=== PATIENT | male | born 1945 | race Caucasian/White ===

== ENCOUNTER 2017-05-28 16:57 | Emergency (ER) | payer OTHER, BC ==
[~2017-05-28] VITALS: Ht 167.6 cm; Wt 85.0 kg
[2017-05-28 18:22] LABS: HEMATOCRIT 40.3 % (38.0-50.0); HEMOGLOBIN 13.9 G/DL (12.5-16.6); MCH 32.9 PG (29.0-34.0); MCHC 34.5 G/DL (30.0-36.0); MCV 95.3 FL (86-99); PLATELET COUNT 216 K/uL (156-360); RBC DIS.WIDTH-CV 14.7 % (11.8-14.6); RBC DIS.WIDTH-SD 51.1 % (39-53); RED BLOOD COUNT 4.23 M/uL (4.00-5.50); WHITE BLOOD COUNT 7.1 K/uL (4.1-10.2)
[2017-05-28 18:32] LABS: CHLORIDE 100 mEq/L (99-109); POTASSIUM 3.5 mEq/L (3.7-5.4); SODIUM 138 mEq/L (136-147)
[2017-05-28 18:34] LABS: GLUCOSE 172 mg/dL (70-99)
[2017-05-28 18:38] LABS: GFR ESTIMATE (CALCULATED) > 59 mL/min/ (58.99-99999)
[2017-05-28 18:39] LABS: UREA NITROGEN (BUN) 28 mg/dL (9-23)
[2017-05-28] MEDS ORDERED: LASIX40 MG PO (20:34)
[2017-05-28] MEDS ORDERED: ELIQUIS5 MG PO (20:34)
[2017-05-28 21:05] VITALS: BP 110/82
== END 2017-05-28 20:44 | disposition home or self-care (01) ==
LOC: EME 16:57
PROVIDERS: Physician Assistant
DX: I82.402 Acute embolism and thrombosis of unspecified deep veins of left lower extremity (principal); R60.0 Localized edema; R91.8 Other nonspecific abnormal finding of lung field; R00.0 Tachycardia, unspecified; I44.0 Atrioventricular block, first degree; I49.3 Ventricular premature depolarization; I44.4 Left anterior fascicular block; R94.31 Abnormal electrocardiogram [ECG] [EKG]; K21.9 Gastro-esophageal reflux disease without esophagitis; Z87.01 Personal history of pneumonia (recurrent)
CPT/HCPCS: 71046; 80048; 85027; 93005; 93970; 99281; 99284

== ENCOUNTER 2017-06-17 17:23 | Emergency (ER) | payer OTHER, BC ==
[~2017-06-17] VITALS: Ht 170.2 cm; Wt 88.3 kg
[~2017-06-17 17:23] MED LIST: CLARITIN,ALAVAR10 MG PO; DULCOLAX5 MG PO; ELIQUIS5 MG PO; FLONASE16 G1 BOTH NARES; HYDROCHLOROTHIA25 MG PO; LASIX40 MG PO; MONODOX100 MG PO; MORGIDOX50 MG PO; OCEAN NASAL 0.645 ML BOTH NARES; PEPCID COMPLET1 EACH PO; PRILOSEC20 MG PO; PROMETHAZINE-D120 M1 PO; SINGULAIR10 MG PO; ZYRTEC5 MG PO; [UNRECOGNIZED DRUG - OTHER] TP
[2017-06-17 18:03] LABS: HEMATOCRIT 41.5 % (38.0-50.0); HEMOGLOBIN 14.6 G/DL (12.5-16.6); MCH 33.6 PG (29.0-34.0); MCHC 35.2 G/DL (30.0-36.0); MCV 95.4 FL (86-99); NRBC (%) 0.6 /100 WBC (0-0); PLATELET COUNT 190 K/uL (156-360); RBC DIS.WIDTH-CV 15.9 % (11.8-14.6); RBC DIS.WIDTH-SD 54.4 % (39-53); RED BLOOD COUNT 4.35 M/uL (4.00-5.50); WHITE BLOOD COUNT 5.4 K/uL (4.1-10.2)
[2017-06-17 18:12] LABS: CHLORIDE 99 mEq/L (99-109); POTASSIUM 3.4 mEq/L (3.7-5.4); SODIUM 137 mEq/L (136-147)
[2017-06-17 18:13] LABS: GLUCOSE 181 mg/dL (70-99)
[2017-06-17 18:17] LABS: CREATININE 1.1 mg/dL (0.6-1.3); GFR ESTIMATE (CALCULATED) > 59 mL/min/ (58.99-99999)
[2017-06-17 18:18] LABS: UREA NITROGEN (BUN) 36 mg/dL (9-23)
[2017-06-17 18:25] LABS: TROP-I INTERPRETATION NEGATIVE; TROPONIN-I 0.05 ng/mL (0.0-0.30)
[2017-06-17 21:33] VITALS: BP 107/69
== END 2017-06-17 21:40 | disposition home or self-care (01) ==
LOC: EME 17:23
DX: I50.9 Heart failure, unspecified (principal); K21.9 Gastro-esophageal reflux disease without esophagitis; Z86.718 Personal history of other venous thrombosis and embolism
CPT/HCPCS: 71046; 80048; 83880; 84484; 85027; 93005; 99281; 99285

== ENCOUNTER 2017-06-20 13:49 | Inpatient (IN) | payer OTHER, BC ==
[~2017-06-20] VITALS: Ht 167.6 cm; Wt 80.3 kg
[2017-06-20 15:03] LABS: BASOPHIL (%) 0.6 % (0-1); EOSINOPHIL (%) 0.4 % (0-5); HEMATOCRIT 42.8 % (38.0-50.0); IMMATURE GRANULOCYTE (%) 0.4 % (0.0-0.7); LYMPHOCYTE (%) 23.2 % (15-42); LYMPHOCYTE COUNT 1.2 K/uL (1.0-2.8); MCH 33.5 PG (29.0-34.0); MCV 95.5 FL (86-99); MONOCYTE COUNT 0.4 K/uL (0-0.8); NEUTROPHIL (%) 68.4 % (45-76); NEUTROPHIL COUNT 3.6 K/uL (1.8-6.4); NRBC (%) 0.8 /100 WBC (0-0); PLATELET COUNT 172 K/uL (156-360); RBC DIS.WIDTH-CV 16.3 % (11.8-14.6); RBC DIS.WIDTH-SD 55.5 % (39-53); RED BLOOD COUNT 4.48 M/uL (4.00-5.50); WHITE BLOOD COUNT 5.3 K/uL (4.1-10.2)
[2017-06-20 15:09] LABS: INTER. NORMALIZED RATIO 1.8
[2017-06-20 15:11] LABS: PTT 26.9 SEC (25-37)
[2017-06-20 15:12] LABS: CHLORIDE 99 mEq/L (99-109); SODIUM 135 mEq/L (136-147)
[2017-06-20 15:13] LABS: MAGNESIUM 1.5 mg/dL (1.3-2.7)
[2017-06-20 15:14] LABS: GLUCOSE 175 mg/dL (70-99)
[2017-06-20 15:18] LABS: CREATININE 1.2 mg/dL (0.6-1.3); GFR ESTIMATE (CALCULATED) > 59 mL/min/ (58.99-99999)
[2017-06-20 15:19] LABS: UREA NITROGEN (BUN) 38 mg/dL (9-23)
[2017-06-20 15:24] LABS: TROP-I INTERPRETATION NEGATIVE; TROPONIN-I 0.06 ng/mL (0.0-0.30)
[2017-06-20] MEDS ORDERED: FUROSEMIDE40 MG PO (16:14)
[2017-06-20] MEDS ORDERED: B-100 COMPLEX100 MG PO (16:15)
[2017-06-20] MEDS ORDERED: K-DUR20 MEQ PO (16:15)
[2017-06-20 19:57] VITALS: BP 88/78
[2017-06-20 23:58] VITALS: BP 92/73
[2017-06-21 05:40] VITALS: BP 101/72
[2017-06-21 08:10] VITALS: BP 103/79
[2017-06-21 09:59] LABS: CHLORIDE 99 MEQ/L (99-109); GFR ESTIMATE (CALCULATED) > 59 mL/min/ (58.99-99999); GLUCOSE 139 mg/dL (70-99); SODIUM 134 MEQ/L (136-147); UREA NITROGEN (BUN) 31 mg/dL (9-23)
[2017-06-21 10:13] LABS: BASOPHIL (%) 0.9 % (0-1); BASOPHIL COUNT 0.1 K/uL (0-0.1); EOSINOPHIL (%) 0.7 % (0-5); HEMATOCRIT 47.2 % (38.0-50.0); HEMOGLOBIN 15.2 G/DL (12.5-16.6); IMMATURE GRANULOCYTE (%) 0.6 % (0.0-0.7); LYMPHOCYTE (%) 22.6 % (15-42); LYMPHOCYTE COUNT 1.2 K/uL (1.0-2.8); MCH 32.5 PG (29.0-34.0); MCHC 32.2 G/DL (30.0-36.0); MONOCYTE (%) 6.1 % (3-12); MONOCYTE COUNT 0.3 K/uL (0-0.8); NEUTROPHIL (%) 69.1 % (45-76); NEUTROPHIL COUNT 3.7 K/uL (1.8-6.4); NRBC (%) 0.6 /100 WBC (0-0); PLATELET COUNT 156 K/uL (156-360); RBC DIS.WIDTH-SD 61.1 % (39-53); RED BLOOD COUNT 4.68 M/uL (4.00-5.50); WHITE BLOOD COUNT 5.4 K/uL (4.1-10.2)
[2017-06-21 10:15] LABS: MCV 100.9 FL (86-99)
[2017-06-21 15:35] VITALS: BP 104/68
[2017-06-21 19:50] VITALS: BP 93/75
[2017-06-22 03:20] VITALS: BP 98/68
[2017-06-22 05:53] LABS: CHLORIDE 99 MEQ/L (99-109); CREATININE 0.9 MG/DL (0.6-1.3); GFR ESTIMATE (CALCULATED) > 59 mL/min/ (58.99-99999); GLUCOSE 138 mg/dL (70-99); POTASSIUM 3.5 MEQ/L (3.7-5.4); SODIUM 136 MEQ/L (136-147); UREA NITROGEN (BUN) 29 mg/dL (9-23)
[2017-06-22 07:37] VITALS: BP 98/63
[2017-06-22 09:45] LABS: MAGNESIUM 1.6 mg/dl (1.3-2.7)
[2017-06-22 11:45] VITALS: BP 89/60
[2017-06-22] MEDS ORDERED: ELIQUIS5 MG PO (14:37)
[2017-06-22 16:06] VITALS: BP 102/65
[2017-06-22 20:03] VITALS: BP 89/69
[2017-06-22 23:33] VITALS: BP 96/76
[2017-06-23] VITALS (8 sets, daily range): BP systolic 82–122; BP diastolic 58–78
[2017-06-23 07:03] LABS: CHLORIDE 100 MEQ/L (99-109); CREATININE 0.9 MG/DL (0.6-1.3); GFR ESTIMATE (CALCULATED) > 59 mL/min/ (58.99-99999); GLUCOSE 194 mg/dL (70-99); MAGNESIUM 1.6 mg/dl (1.3-2.7); SODIUM 135 MEQ/L (136-147); UREA NITROGEN (BUN) 30 mg/dL (9-23)
[2017-06-24 04:30] VITALS: BP 97/64
[2017-06-24 05:36] LABS: CHLORIDE 101 MEQ/L (99-109); CREATININE 0.9 MG/DL (0.6-1.3); GFR ESTIMATE (CALCULATED) > 59 mL/min/ (58.99-99999); GLUCOSE 186 mg/dL (70-99); MAGNESIUM 1.8 mg/dl (1.3-2.7); POTASSIUM 4.5 MEQ/L (3.7-5.4); SODIUM 135 MEQ/L (136-147); UREA NITROGEN (BUN) 28 mg/dL (9-23)
[2017-06-24 07:50] VITALS: BP 98/62
[2017-06-24 11:38] VITALS: BP 78/40
[2017-06-24 16:26] VITALS: BP 82/46
[2017-06-24 20:45] VITALS: BP 88/52
[2017-06-25 00:16] VITALS: BP 103/78
[2017-06-25 04:18] VITALS: BP 94/69
[2017-06-25 08:51] LABS: CHLORIDE 100 MEQ/L (99-109); GFR ESTIMATE (CALCULATED) > 59 mL/min/ (58.99-99999); GLUCOSE 184 mg/dL (70-99); POTASSIUM 5.8 MEQ/L (3.7-5.4); SODIUM 131 MEQ/L (136-147); UREA NITROGEN (BUN) 31 mg/dL (9-23)
[2017-06-25 09:00] VITALS: BP 102/72
[2017-06-25 12:05] VITALS: BP 89/71
[2017-06-25 16:50] VITALS: BP 96/68
[2017-06-25 19:30] VITALS: BP 106/73
[2017-06-26 03:52] VITALS: BP 91/57
[2017-06-26 05:25] LABS: BASOPHIL (%) 0.5 % (0-1); EOSINOPHIL (%) 0.9 % (0-5); EOSINOPHIL COUNT 0.1 K/uL (0-0.3); HEMATOCRIT 39.6 % (38.0-50.0); HEMOGLOBIN 13.3 G/DL (12.5-16.6); IMMATURE GRANULOCYTE (%) 0.4 % (0.0-0.7); LYMPHOCYTE (%) 17.3 % (15-42); MCHC 33.6 G/DL (30.0-36.0); MONOCYTE (%) 5.1 % (3-12); MONOCYTE COUNT 0.3 K/uL (0-0.8); NEUTROPHIL (%) 75.8 % (45-76); NEUTROPHIL COUNT 4.2 K/uL (1.8-6.4); PLATELET COUNT 174 K/uL (156-360); RBC DIS.WIDTH-CV 15.9 % (11.8-14.6); RBC DIS.WIDTH-SD 54.9 % (39-53); RED BLOOD COUNT 4.16 M/uL (4.00-5.50); WHITE BLOOD COUNT 5.5 K/uL (4.1-10.2)
[2017-06-26 05:29] LABS: MCV 95.2 FL (86-99)
[2017-06-26 05:50] LABS: CHLORIDE 99 MEQ/L (99-109); CREATININE 0.9 MG/DL (0.6-1.3); GFR ESTIMATE (CALCULATED) > 59 mL/min/ (58.99-99999); GLUCOSE 165 mg/dL (70-99); POTASSIUM 4.3 MEQ/L (3.7-5.4); SODIUM 133 MEQ/L (136-147); UREA NITROGEN (BUN) 28 mg/dL (9-23)
[2017-06-26 08:25] VITALS: BP 100/60
[2017-06-26 11:12] VITALS: BP 105/74
[2017-06-26 16:00] VITALS: BP 93/64
[2017-06-26 19:00] VITALS: BP 91/67
[2017-06-26 23:40] VITALS: BP 93/65
[2017-06-27] VITALS (7 sets, daily range): BP systolic 91–100; BP diastolic 64–75
[2017-06-27 05:29] LABS: BASOPHIL (%) 0.7 % (0-1); EOSINOPHIL (%) 1.6 % (0-5); EOSINOPHIL COUNT 0.1 K/uL (0-0.3); HEMOGLOBIN 13.9 G/DL (12.5-16.6); IMMATURE GRANULOCYTE (%) 0.4 % (0.0-0.7); LYMPHOCYTE (%) 16.9 % (15-42); LYMPHOCYTE COUNT 0.9 K/uL (1.0-2.8); MCH 33.4 PG (29.0-34.0); MCHC 34.8 G/DL (30.0-36.0); MCV 96.2 FL (86-99); MONOCYTE (%) 5.5 % (3-12); MONOCYTE COUNT 0.3 K/uL (0-0.8); NEUTROPHIL (%) 74.9 % (45-76); NEUTROPHIL COUNT 4.1 K/uL (1.8-6.4); PLATELET COUNT 175 K/uL (156-360); RBC DIS.WIDTH-CV 16.2 % (11.8-14.6); RBC DIS.WIDTH-SD 56.4 % (39-53); RED BLOOD COUNT 4.16 M/uL (4.00-5.50); WHITE BLOOD COUNT 5.5 K/uL (4.1-10.2)
[2017-06-27 05:51] LABS: CHLORIDE 98 MEQ/L (99-109); GFR ESTIMATE (CALCULATED) > 59 mL/min/ (58.99-99999); GLUCOSE 160 mg/dL (70-99); POTASSIUM 4.7 MEQ/L (3.7-5.4); SODIUM 132 MEQ/L (136-147); UREA NITROGEN (BUN) 31 mg/dL (9-23)
[2017-06-28] VITALS (8 sets, daily range): BP systolic 92–102; BP diastolic 59–74
[2017-06-28 06:01] LABS: BASOPHIL (%) 0.8 % (0-1); EOSINOPHIL (%) 0.8 % (0-5); HEMATOCRIT 42.5 % (38.0-50.0); HEMOGLOBIN 14.3 G/DL (12.5-16.6); IMMATURE GRANULOCYTE (%) 0.2 % (0.0-0.7); LYMPHOCYTE COUNT 1.1 K/uL (1.0-2.8); MCH 32.6 PG (29.0-34.0); MCHC 33.6 G/DL (30.0-36.0); MCV 96.8 FL (86-99); MONOCYTE (%) 5.5 % (3-12); MONOCYTE COUNT 0.3 K/uL (0-0.8); NEUTROPHIL (%) 70.7 % (45-76); NEUTROPHIL COUNT 3.5 K/uL (1.8-6.4); PLATELET COUNT 184 K/uL (156-360); RBC DIS.WIDTH-CV 16.4 % (11.8-14.6); RED BLOOD COUNT 4.39 M/uL (4.00-5.50)
[2017-06-28 06:26] LABS: CHLORIDE 99 MEQ/L (99-109); CREATININE 0.9 MG/DL (0.6-1.3); GFR ESTIMATE (CALCULATED) > 59 mL/min/ (58.99-99999); GLUCOSE 150 mg/dL (70-99); POTASSIUM 5.1 MEQ/L (3.7-5.4); SODIUM 135 MEQ/L (136-147); UREA NITROGEN (BUN) 28 mg/dL (9-23)
[2017-06-29 04:12] VITALS: BP 101/57
[2017-06-29 07:00] LABS: CHLORIDE 100 MEQ/L (99-109); CREATININE 0.9 MG/DL (0.6-1.3); GFR ESTIMATE (CALCULATED) > 59 mL/min/ (58.99-99999); GLUCOSE 151 mg/dL (70-99); POTASSIUM 4.5 MEQ/L (3.7-5.4); SODIUM 135 MEQ/L (136-147); UREA NITROGEN (BUN) 29 mg/dL (9-23)
[2017-06-29 10:23] VITALS: BP 92/70
[2017-06-29 12:50] VITALS: BP 102/73
[2017-06-29 16:54] VITALS: BP 87/64
[2017-06-29 19:45] VITALS: BP 98/68
[2017-06-29 23:28] VITALS: BP 90/51
[2017-06-30 07:06] LABS: CHLORIDE 99 MEQ/L (99-109); GFR ESTIMATE (CALCULATED) > 59 mL/min/ (58.99-99999); GLUCOSE 124 mg/dL (70-99); POTASSIUM 4.1 MEQ/L (3.7-5.4); SODIUM 138 MEQ/L (136-147); UREA NITROGEN (BUN) 29 mg/dL (9-23)
[2017-06-30 07:57] VITALS: BP 99/71
[2017-06-30 11:38] VITALS: BP 97/73
[2017-06-30 16:16] VITALS: BP 86/61
[2017-06-30 20:19] VITALS: BP 101/77
[2017-06-30 23:52] VITALS: BP 92/70
[2017-07-01 00:18] VITALS: BP 79/53
[2017-07-01 03:38] VITALS: BP 82/56
[2017-07-01 06:09] LABS: CHLORIDE 99 MEQ/L (99-109); CREATININE 0.9 MG/DL (0.6-1.3); GFR ESTIMATE (CALCULATED) > 59 mL/min/ (58.99-99999); GLUCOSE 128 mg/dL (70-99); POTASSIUM 3.4 MEQ/L (3.7-5.4); SODIUM 137 MEQ/L (136-147); UREA NITROGEN (BUN) 26 mg/dL (9-23)
[2017-07-01 08:53] VITALS: BP 92/67
[2017-07-01 16:28] VITALS: BP 96/67
[2017-07-01 20:32] VITALS: BP 101/70
[2017-07-02 00:18] VITALS: BP 90/62
[2017-07-02 04:00] VITALS: BP 90/65
[2017-07-02 06:13] LABS: CHLORIDE 98 MEQ/L (99-109); CREATININE 0.8 MG/DL (0.6-1.3); GFR ESTIMATE (CALCULATED) > 59 mL/min/ (58.99-99999); GLUCOSE 125 mg/dL (70-99); POTASSIUM 3.6 MEQ/L (3.7-5.4); SODIUM 138 MEQ/L (136-147); UREA NITROGEN (BUN) 24 mg/dL (9-23)
[2017-07-02 07:28] VITALS: BP 91/63
[2017-07-02 11:07] VITALS: BP 82/64
[2017-07-02 15:29] VITALS: BP 96/63
[2017-07-02 20:13] VITALS: BP 95/70
[2017-07-03] VITALS (7 sets, daily range): BP systolic 82–126; BP diastolic 49–79
[2017-07-03 09:30] LABS: CHLORIDE 96 MEQ/L (99-109); CREATININE 0.9 MG/DL (0.6-1.3); GFR ESTIMATE (CALCULATED) > 59 mL/min/ (58.99-99999); GLUCOSE 173 mg/dL (70-99); POTASSIUM 3.8 MEQ/L (3.7-5.4); SODIUM 133 MEQ/L (136-147); UREA NITROGEN (BUN) 23 mg/dL (9-23)
[2017-07-04] VITALS (7 sets, daily range): BP systolic 89–111; BP diastolic 55–72
[2017-07-04 07:13] LABS: CHLORIDE 96 MEQ/L (99-109); GFR ESTIMATE (CALCULATED) > 59 mL/min/ (58.99-99999); GLUCOSE 142 mg/dL (70-99); POTASSIUM 4.3 MEQ/L (3.7-5.4); SODIUM 136 MEQ/L (136-147); UREA NITROGEN (BUN) 24 mg/dL (9-23)
[2017-07-05 03:40] VITALS: BP 95/69
[2017-07-05 06:02] LABS: HEMATOCRIT 40.9 % (38.0-50.0); HEMOGLOBIN 13.6 G/DL (12.5-16.6); MCHC 33.3 G/DL (30.0-36.0); MCV 96.2 FL (86-99); PLATELET COUNT 180 K/uL (156-360); RBC DIS.WIDTH-CV 16.2 % (11.8-14.6); RBC DIS.WIDTH-SD 57.6 % (39-53); RED BLOOD COUNT 4.25 M/uL (4.00-5.50); WHITE BLOOD COUNT 4.3 K/uL (4.1-10.2)
[2017-07-05 06:25] LABS: CHLORIDE 99 MEQ/L (99-109); CREATININE 0.8 MG/DL (0.6-1.3); GFR ESTIMATE (CALCULATED) > 59 mL/min/ (58.99-99999); GLUCOSE 132 mg/dL (70-99); POTASSIUM 3.9 MEQ/L (3.7-5.4); SODIUM 137 MEQ/L (136-147); UREA NITROGEN (BUN) 23 mg/dL (9-23)
[2017-07-05 08:16] VITALS: BP 90/70
[2017-07-05 12:08] VITALS: BP 92/68
[2017-07-05 15:57] VITALS: BP 87/67
[2017-07-05 20:00] VITALS: BP 92/65
[2017-07-06] VITALS (8 sets, daily range): BP systolic 85–115; BP diastolic 58–73
[2017-07-06 11:23] LABS: CHLORIDE 98 MEQ/L (99-109); CREATININE 0.8 MG/DL (0.6-1.3); GFR ESTIMATE (CALCULATED) > 59 mL/min/ (58.99-99999); GLUCOSE 180 mg/dL (70-99); MAGNESIUM 1.9 mg/dl (1.3-2.7); POTASSIUM 3.6 MEQ/L (3.7-5.4); SODIUM 136 MEQ/L (136-147); UREA NITROGEN (BUN) 22 mg/dL (9-23)
[2017-07-07 03:58] VITALS: BP 97/55
[2017-07-07 05:51] LABS: HEMATOCRIT 39.8 % (38.0-50.0); HEMOGLOBIN 13.3 G/DL (12.5-16.6); MCH 32.5 PG (29.0-34.0); MCHC 33.4 G/DL (30.0-36.0); MCV 97.3 FL (86-99); PLATELET COUNT 177 K/uL (156-360); RBC DIS.WIDTH-CV 16.1 % (11.8-14.6); RBC DIS.WIDTH-SD 57.6 % (39-53); RED BLOOD COUNT 4.09 M/uL (4.00-5.50); WHITE BLOOD COUNT 4.3 K/uL (4.1-10.2)
[2017-07-07 06:20] LABS: CHLORIDE 92 MEQ/L (99-109); CREATININE 0.8 MG/DL (0.6-1.3); GFR ESTIMATE (CALCULATED) > 59 mL/min/ (58.99-99999); SODIUM 136 MEQ/L (136-147); UREA NITROGEN (BUN) 23 mg/dL (9-23)
[2017-07-07 06:21] LABS: GLUCOSE 119 mg/dL (70-99); POTASSIUM 2.7 MEQ/L (3.7-5.4)
[2017-07-07 07:49] VITALS: BP 96/72
[2017-07-07 11:28] VITALS: BP 88/68
[2017-07-07 17:00] VITALS: BP 148/92
[2017-07-07 19:49] VITALS: BP 97/65
[2017-07-08] VITALS (7 sets, daily range): BP systolic 81–142; BP diastolic 53–67
[2017-07-08 08:50] LABS: CHLORIDE 89 MEQ/L (99-109); CREATININE 0.8 MG/DL (0.6-1.3); GFR ESTIMATE (CALCULATED) > 59 mL/min/ (58.99-99999); GLUCOSE 128 mg/dL (70-99); MAGNESIUM 1.8 mg/dl (1.3-2.7); SODIUM 138 MEQ/L (136-147); UREA NITROGEN (BUN) 22 mg/dL (9-23)
[2017-07-08 08:51] LABS: POTASSIUM 3.3 MEQ/L (3.7-5.4)
[2017-07-09] VITALS (7 sets, daily range): BP systolic 83–104; BP diastolic 54–74
[2017-07-09 06:17] LABS: CHLORIDE 87 MEQ/L (99-109); CREATININE 0.7 MG/DL (0.6-1.3); GFR ESTIMATE (CALCULATED) > 59 mL/min/ (58.99-99999); GLUCOSE 139 mg/dL (70-99); MAGNESIUM 1.8 mg/dl (1.3-2.7); POTASSIUM 3.3 MEQ/L (3.7-5.4); SODIUM 136 MEQ/L (136-147); UREA NITROGEN (BUN) 23 mg/dL (9-23)
[2017-07-10] VITALS (7 sets, daily range): BP systolic 84–118; BP diastolic 63–77
[2017-07-10 06:08] LABS: HEMATOCRIT 38.4 % (38.0-50.0); MCH 32.5 PG (29.0-34.0); MCHC 33.9 G/DL (30.0-36.0); PLATELET COUNT 165 K/uL (156-360); RBC DIS.WIDTH-SD 56.7 % (39-53); WHITE BLOOD COUNT 4.4 K/uL (4.1-10.2)
[2017-07-10 06:41] LABS: CHLORIDE 89 MEQ/L (99-109); CREATININE 0.7 MG/DL (0.6-1.3); GFR ESTIMATE (CALCULATED) > 59 mL/min/ (58.99-99999); GLUCOSE 141 mg/dL (70-99); MAGNESIUM 1.8 mg/dl (1.3-2.7); POTASSIUM 3.3 MEQ/L (3.7-5.4); SODIUM 136 MEQ/L (136-147); UREA NITROGEN (BUN) 23 mg/dL (9-23)
[2017-07-11 03:28] VITALS: BP 93/63
[2017-07-11 06:51] LABS: CHLORIDE 89 MEQ/L (99-109); CREATININE 0.9 MG/DL (0.6-1.3); GFR ESTIMATE (CALCULATED) > 59 mL/min/ (58.99-99999); GLUCOSE 158 mg/dL (70-99); SODIUM 135 MEQ/L (136-147); UREA NITROGEN (BUN) 25 mg/dL (9-23)
[2017-07-11 06:56] LABS: POTASSIUM 4.2 MEQ/L (3.7-5.4)
[2017-07-11 07:44] VITALS: BP 115/75
[2017-07-11 11:24] VITALS: BP 104/79
[2017-07-11 15:19] VITALS: BP 141/78
[2017-07-11 20:43] VITALS: BP 111/72
[2017-07-11 23:20] VITALS: BP 95/66
[2017-07-12 03:45] VITALS: BP 93/66
[2017-07-12 06:19] LABS: CHLORIDE 88 MEQ/L (99-109); GFR ESTIMATE (CALCULATED) > 59 mL/min/ (58.99-99999); GLUCOSE 171 mg/dL (70-99); MAGNESIUM 2.2 mg/dl (1.3-2.7); POTASSIUM 4.8 MEQ/L (3.7-5.4); SODIUM 135 MEQ/L (136-147); UREA NITROGEN (BUN) 31 mg/dL (9-23)
[2017-07-12 07:23] VITALS: BP 115/79
[2017-07-12] MEDS ORDERED: METOPROLOL SUCC25 MG PO (10:35)
[2017-07-12] MEDS ORDERED: SPIRONOLACTONE25 MG PO (10:36)
[2017-07-12] MEDS ORDERED: FUROSEMIDE40 MG PO (10:36)
== END 2017-07-12 12:03 | disposition home or self-care (01) | DRG 292 ==
LOC: EME 13:49 → EDOF 15:57 → 5SOUTH 15:57 → 4EAST 15:57 → 2EAST 15:57 → ENRESERV 15:58 → 5SOUTH 18:56 → ENRESERV 06-23 16:04 → 4EAST 06-23 17:46 → CANRESERV 06-28 09:09 → ENRESERV 06-28 09:09 → 2EAST 06-28 12:13
PROVIDERS: Emergency Medicine; Hospitalist; Internal Medicine; Internal Medicine Cardiovascular Disease; Nurse Practitioner Family; Physician Assistant Medical; Student in an Organized Health Care Education/Training Program
DX: I11.0 Hypertensive heart disease with heart failure (principal); I50.23 Acute on chronic systolic (congestive) heart failure; I50.82 Biventricular heart failure; R91.1 Solitary pulmonary nodule; I24.0 Acute coronary thrombosis not resulting in myocardial infarction; K21.9 Gastro-esophageal reflux disease without esophagitis; K76.1 Chronic passive congestion of liver; I27.20 Pulmonary hypertension, unspecified; I82.509 Chronic embolism and thrombosis of unspecified deep veins of unspecified lower extremity; I47.2 Ventricular tachycardia; I95.9 Hypotension, unspecified; F41.9 Anxiety disorder, unspecified; K31.9 Disease of stomach and duodenum, unspecified; E87.6 Hypokalemia; I42.9 Cardiomyopathy, unspecified; E87.1 Hypo-osmolality and hyponatremia; I49.3 Ventricular premature depolarization; Z87.01 Personal history of pneumonia (recurrent); T50.2X5A Adverse effect of carbonic-anhydrase inhibitors, benzothiadiazides and other diuretics, initial encounter; R18.8 Other ascites; I34.0 Nonrheumatic mitral (valve) insufficiency; Z79.899 Other long term (current) drug therapy; K59.00 Constipation, unspecified; Z86.718 Personal history of other venous thrombosis and embolism; Z79.01 Long term (current) use of anticoagulants; Z68.30 Body mass index [BMI] 30.0-30.9, adult; Z86.72 Personal history of thrombophlebitis
CPT/HCPCS: 71045; 71046; 71275; 80048; 83735; 83880; 84132 91; 84484; 85025; 85027; 85379; 85610; 85730; 93005; 93306; 93970; 94640; 94640 76; 94799; 97530 GO; 99281; 99285; J1940; J3480

== ENCOUNTER 2017-07-20 16:37 | Emergency (ER) | payer OTHER, BC ==
[~2017-07-20] VITALS: Ht 170.2 cm; Wt 79.3 kg
[~2017-07-20 16:37] MED LIST changes: +B-100 COMPLEX100 MG PO; +FUROSEMIDE40 MG PO; +K-DUR20 MEQ PO; +METOPROLOL SUCC25 MG PO; +SPIRONOLACTONE25 MG PO
[2017-07-20 18:09] LABS: BASOPHIL (%) 0.4 % (0-1); EOSINOPHIL (%) 1.2 % (0-5); EOSINOPHIL COUNT 0.1 K/uL (0-0.3); HEMATOCRIT 43.3 % (38.0-50.0); HEMOGLOBIN 14.6 G/DL (12.5-16.6); IMMATURE GRANULOCYTE (%) 0.6 % (0.0-0.7); LYMPHOCYTE COUNT 0.9 K/uL (1.0-2.8); MCHC 33.7 G/DL (30.0-36.0); MCV 97.7 FL (86-99); MONOCYTE (%) 6.5 % (3-12); MONOCYTE COUNT 0.3 K/uL (0-0.8); NEUTROPHIL (%) 73.3 % (45-76); NEUTROPHIL COUNT 3.7 K/uL (1.8-6.4); NRBC (%) 0.6 /100 WBC (0-0); RBC DIS.WIDTH-CV 16.8 % (11.8-14.6); RBC DIS.WIDTH-SD 59.6 % (39-53); RED BLOOD COUNT 4.43 M/uL (4.00-5.50); WHITE BLOOD COUNT 5.1 K/uL (4.1-10.2)
[2017-07-20 18:10] LABS: APPEARANCE CLEAR ((CLEAR)); BILIRUBIN NEGATIVE; BLOOD NEGATIVE; COLOR YELLOW ((YELLOW)); GLUCOSE (STRIP) NEGATIVE; KETONES NEGATIVE; LEUKOCYTES NEGATIVE; NITRITE NEGATIVE; PROTEIN (STRIP) 30; SPECIFIC GRAVITY 1.012 (1.000-1.030); UCUL ADDED? NO; UROBILINOGEN 0.2 MG/DL (0.2-1.0)
[2017-07-20 18:10] LABS: PLATELET COUNT 215 K/uL (156-360)
[2017-07-20 18:19] LABS: ALBUMIN 3.6 g/dL (3.2-4.8); CHLORIDE 97 mEq/L (99-109); SODIUM 137 mEq/L (136-147)
[2017-07-20 18:20] LABS: MAGNESIUM 2.1 mg/dL (1.3-2.7); PTT 28.9 SEC (25-37)
[2017-07-20 18:21] LABS: GLUCOSE 134 mg/dL (70-99); TOTAL PROTEIN 6.8 g/dL (6.4-8.3)
[2017-07-20 18:23] LABS: TOTAL BILIRUBIN 1.9 mg/dL (0.0-1.0)
[2017-07-20 18:25] LABS: ALKALINE PHOSPHATASE 137 IU/L (3-129); CREATININE 1.1 mg/dL (0.6-1.3); GFR ESTIMATE (CALCULATED) > 59 mL/min/ (58.99-99999)
[2017-07-20 18:26] LABS: UREA NITROGEN (BUN) 38 mg/dL (9-23)
[2017-07-20 18:27] LABS: AST (GOT) 37 IU/L (2-34)
[2017-07-20 18:28] LABS: ALT (GPT) 46 IU/L (3-49)
[2017-07-20 18:30] LABS: TROP-I INTERPRETATION NEGATIVE; TROPONIN-I 0.03 ng/mL (0.0-0.30)
[2017-07-20] MEDS ORDERED: FLEET ENEMA-AD118 ML PR (19:19)
[2017-07-20] MEDS ORDERED: COLACE100 MG PO (19:19)
[2017-07-20] MEDS ORDERED: ADULT SUPPOSIT1 EACH PR (19:19)
[2017-07-20 19:38] VITALS: BP 95/74
== END 2017-07-20 19:39 | disposition home or self-care (01) ==
LOC: EME 16:37
PROVIDERS: Emergency Medicine
DX: K59.00 Constipation, unspecified (principal); K21.9 Gastro-esophageal reflux disease without esophagitis; J45.909 Unspecified asthma, uncomplicated; F32.9 Major depressive disorder, single episode, unspecified; Z86.718 Personal history of other venous thrombosis and embolism
CPT/HCPCS: 74022; 80053; 81003; 83735; 83880; 84484; 85025; 85610; 85730; 93005; 99281; 99284

== ENCOUNTER 2017-08-04 09:26 | Day surgery (SDC) | payer OTHER, BC ==
[~2017-08-04] VITALS: Ht 168.9 cm; Wt 75.0 kg
[~2017-08-04 09:26] MED LIST changes: +ADULT SUPPOSIT1 EACH PR; +COLACE100 MG PO; +FLEET ENEMA-AD118 ML PR
[2017-08-04] MEDS ORDERED: LASIX40 MG PO (10:57)
== END 2017-08-04 18:44 | disposition home or self-care (01) ==
LOC: CATH 09:26
DX: I42.0 Dilated cardiomyopathy (principal); I48.91 Unspecified atrial fibrillation; I50.20 Unspecified systolic (congestive) heart failure; Z79.01 Long term (current) use of anticoagulants; Z86.718 Personal history of other venous thrombosis and embolism
CPT/HCPCS: C1769; C1887; J1644; J2250; J3010